=== PATIENT | male | born 1985 | race Caucasian/White ===

== ENCOUNTER 2017-04-21 00:42 | Emergency (ER) | payer MEDICAID, OTHER ==
[2017-04-21 01:02] VITALS: BP 107/73; PULSE 11; O2SAT 98
[2017-04-21] MEDS ORDERED: TYLENOL 325 MG PO STA (01:04)
[2017-04-21] MEDS ORDERED: TYLENOL 325 MG ONE (01:41)
--- NOTE | 2017-04-21 02:21 | ERPHSYRPT ---
- History of Present Illness Time Seen by Provider: 04/21/17 01:13 Source: patient Exam Limitations: clinical condition Patient Subjective Stated Complaint: HAD AN ARGUMENT WITH FAMILY.. DECIDED TO WALK FROM [place] THIS DIRECTION TO GET AWAY. STATES HAD LEG AND FEET PAIN AND WAS COLD. Triage Nursing Assessment: ALERT AND ORIENTED. WARM BLANKETS APPLIED. WET CLOTHES REMOVBED ON ARRIVAL. BLISTERS NOTED TO FEET. NO OTHER C/O Physician History: PATIENT INVOLVED IN ARGUMENT WITH HIS FAMILY AND DECIDED TO WALK FROM [place] AND COMPLAIN OF PAIN OVER BOTH FEET AND FEELS COLD. DENIES CHEST PAIN, DYSPNEA OR PALPITATIONS. DENIES SUICIDAL OR HOMOCIDAL IDEATION. Method of Injury: other (PAIN OVER FEET) Occurred: just prior to arrival Quality: constant Severity of Pain-Max: moderate Severity of Pain-Current: moderate Lower Extremities Pain: foot: bilateral Modifying Factors: Improves With: other (WEIGHT BEARING) Allergies/Adverse Reactions: Penicillins Allergy (Mild, Verified 04/21/17 01:31) cefaclor [From Ceclor] Allergy (Verified 04/21/17 01:32) Immunizations Up to Date: (UNKNOWN) - Review of Systems Constitutional: No Fever, No Chills Eyes: No Symptoms Ears, Nose, & Throat: No Symptoms Respiratory: No Symptoms, No Cough, No Dyspnea Cardiac: Orthopnea, No Chest Pain, No Edema, No Syncope Abdominal/Gastrointestinal: No Symptoms, No Abdominal Pain, No Nausea, No Vomiting, No Diarrhea Genitourinary Symptoms: No Symptoms, No Dysuria Musculoskeletal: Other (PAIN OVER FEET), No Back Pain, No Neck Pain Skin: No Rash Neurological: No Dizziness, No Focal Weakness, No Sensory Changes Psychological: No Symptoms Endocrine: No Symptoms All Other Systems: Reviewed and Negative - Past Medical History Pertinent Past Medical History: Yes Neurological History: Seizures Psycho-Social History: Anxiety - Past Surgical History Past Surgical History: No - Social History Smoking Status: Never smoker Exposure to second hand smoke: No Patient Lives Alone: No - Nursing Vital Signs Nursing Vital Signs: Initial Vital Signs Temperature 98.3 F 04/21/17 00:52 Pulse Rate 11 L 04/21/17 00:52 Respiratory Rate 20 04/21/17 00:52 Blood Pressure 107/73 04/21/17 00:52 O2 Sat by Pulse Oximetry 98 01/22/18 00:52 Pain Scale Pain Intensity 3 - Physical Exam General Appearance: alert Eyes, Ears, Nose, Throat Exam: moist mucous membranes Neck Exam: non-tender, supple Cardiovascular/Respiratory Exam: chest non-tender, normal breath sounds, regular rate/rhythm, no respiratory distress Gastrointestinal/Abdominal Exam: non-tender, guarding Back Exam: normal inspection, No vertebral tenderness Foot Exam: bilateral foot: other (ABRASIONS OVER BILAT MID TO DISTAL METATARSALS ) DTR - Lower Extremities Exam: knee (R): 2+, knee (L): 2+, ankle (R): 2+, ankle ( L): 2+ Neuro/Tendon Exam: normal sensation, normal motor functions Mental Status Exam: alert, oriented x 3, cooperative Skin Exam: normal color, warm, dry SpO2 Interpretation: normal SpO2: 98 Oxygen Delivery: Room Air Ordered Tests: Medication Summary Discontinued Medications Generic Name Dose Route Start Last Admin Trade Name [place] PRN Reason Stop Dose Admin Acetaminophen 650 mg 04/21/17 01:04 04/21/17 01:51 Tylenol 325 Mg PO 04/21/17 01:05 650 mg STAT STA Administration Acetaminophen Confirm 04/21/17 01:41 Tylenol 325 Mg Administered 04/21/17 01:42 Dose 650 mg .ROUTE .STK-MED ONE - Progress Progress Note: 04/21/17 02:22 ADMINISTERED TYLENOL 650MG ORALLY 04/21/17 02:22 PATIENT AMBULATED OUT OF EMERGENCY AMA Counseled pt/family regarding: diagnosis, need for follow-up - Departure Time of Disposition: 02:00 Departure Disposition: AMA Clinical Impression: BILATERAL FOOT ABRASIONS Condition: Good Critical Care Time: No Referrals: Provider,Unknown [Primary Care Provider] -
== END 2017-04-21 02:00 | disposition left against medical advice (07) ==
LOC: ED 00:42
DX: S90.812A Abrasion, left foot, initial encounter (principal); S90.811A Abrasion, right foot, initial encounter; M79.672 Pain in left foot; M79.671 Pain in right foot
CPT/HCPCS: 99283; A9270-GY